=== PATIENT | male | born 1990 | race Caucasian/White ===

== ENCOUNTER 2020-06-05 16:01 | Emergency (ER) | payer OTHER ==
[2020-06-05 16:24] VITALS: BP 138/95; PULSE 98; TEMP 97.5; BMI 36.0
[2020-06-05 19:10] LABS: BASO % 0.2 % (0-2.0); EOS % 0.6 % (0-4.5); HEMATOCRIT 42.7 % (35.4-49); HEMOGLOBIN 14.8 GM/dL (11.7-16.9); LYMPH % 28.2 % (8-40); MCHC 34.6 g/dl (32.0-35.9); MEAN CELL VOLUME 89.4 fl (80-96); MEAN PLT VOLUME 8.4 fl (7.5-11.1); MONO % 6.6 % (3.8-10.2); NEUT % 64.4 % (42.8-82.8); PLATELET COUNT 246 K/MM3 (134-434); RBC 4.77 M/mm3 (4.00-5.60); RDW 13.1 % (11.9-15.9); WHITE BLOOD COUNT 8.2 K/mm3 (4.0-10.0)
[2020-06-05 19:33] LABS: CHLORIDE 104 mmol/L (98-107); SODIUM 138 mmol/L (136-145)
[2020-06-05 19:36] LABS: ALBUMIN 3.9 g/dl (3.4-5.0); ANION GAP 3 MMOL/L (8-16); CALCIUM 9.2 mg/dL (8.5-10.1); CO2 31 mmol/L (21-32); GLUCOSE,RANDOM 97 mg/dL (74-106)
[2020-06-05 19:39] LABS: CREATININE 0.6 mg/dL (0.55-1.3); SGPT/ALT 32 U/L (13-61)
[2020-06-05 19:40] LABS: SGOT/AST 15 U/L (15-37); TOT PROT 7.2 g/dl (6.4-8.2)
[2020-06-05 19:41] LABS: ALK PHOS 70 U/L (45-117)
[2020-06-05 19:42] LABS: BILIRUBIN,TOTAL 0.6 mg/dL (0.2-1)
== END 2020-06-05 22:40 | disposition home or self-care (01) ==
LOC: JER 16:01
DX: R07.9 Chest pain, unspecified (principal)
CPT/HCPCS: 36415; 71046-TC-FY; 80053; 82550; 82553; 84484; 85025; 93005; 93010; 99285-25